=== PATIENT | female | born 1960 | race Caucasian/White ===

== ENCOUNTER → 2024-01-18 16:10 | Outpatient (REF) | payer OTHER, SELFPAY | LOC: PAVMRI 16:10 | PROVIDERS: ATTENDING PHYSICIAN Orthopaedic Surgery; FAMILY PHYSICIAN Family Medicine | DX: M25.562 Pain in left knee (principal) | CPT/HCPCS: 73721 ==

== ENCOUNTER → 2024-01-23 14:23 | Outpatient (REF) | payer OTHER, SELFPAY ==
[2024-01-23 14:51] LABS: % Basophils 0.9 % (0-2); % Eosinophils 4.9 % (0-6); % Immature Granulocytes 0.2 % (0-0.5); % Lymphocytes 32.5 % (20.5-51.1); % Monocytes 9.3 % (1.7-9.3); % Neutrophils 52.2 % (42.2-75.2); Absolute Basophils 0.1 10^3/uL (0-0.2); Absolute Eosinophils 0.3 10^3/uL (0-0.7); Absolute Lymphocytes 1.8 10^3/uL (1.2-3.4); Absolute Monocytes 0.5 10^3/uL (0.1-0.6); Absolute Neutrophils 2.9 10^3/uL (1.4-6.5); Hematocrit 35.5 % (37.0-47.0); Hemoglobin 12.7 g/dL (12.0-16.0); Mean Corp Hgb Conc. 35.8 g/dL (33.0-37.0); Mean Corpuscular Volume 95.2 fL (81.0-99.0); Mean Platelet Volume 10.3 fL (7.4-10.4); Nucleated Red Blood Cells % 0 %; Platelet Count 188 10^3/uL (130-400); Red Blood Cell Count 3.73 10^6/uL (4.20-5.40); Red Cell Dist. Width 11.7 % (11.5-14.5); White Blood Cell Count 5.5 10^3/uL (4.8-10.8)
== END ==
LOC: RCS 14:23
PROVIDERS: ATTENDING PHYSICIAN Orthopaedic Surgery; FAMILY PHYSICIAN Family Medicine
DX: Z01.818 Encounter for other preprocedural examination (principal)
CPT/HCPCS: 36415; 85025; 93005

== ENCOUNTER 2024-01-26 06:10 | Day surgery (SDC) | payer OTHER, SELFPAY ==
[2024-01-26] VITALS (8 sets, daily range): BP systolic 97–138; BP diastolic 65–87; BMI 22.2
[2024-01-26] MEDS: NORMOSOL-R/PLASMALYTE-A 1000 IV (07:18)
[2024-01-26] MEDS: CELEBREX 200 MG PO (07:19)
[2024-01-26] MEDS: TYLENOL 1000 MG PO (07:19)
[2024-01-26] MEDS: TRANSDERM-SCOP 1 PATCH TRANSDERM (07:28)
== END 2024-01-26 11:30 | disposition home or self-care (01) ==
LOC: SDS 06:10
PROVIDERS: ATTENDING PHYSICIAN Orthopaedic Surgery
DX: S83.232A Complex tear of medial meniscus, current injury, left knee, initial encounter (principal); X50.0XXA Overexertion from strenuous movement or load, initial encounter
CPT/HCPCS: 29881

== ENCOUNTER → 2024-09-18 11:50 | Outpatient (REF) | payer OTHER, SELFPAY | LOC: RAD 11:50 | PROVIDERS: ATTENDING PHYSICIAN Student in an Organized Health Care Education/Training Program | DX: K59.09 Other constipation (principal) | CPT/HCPCS: 74019 ==

== ENCOUNTER → 2024-10-02 13:36 | Outpatient (REF) | payer OTHER, SELFPAY | LOC: RCS 13:36 | PROVIDERS: ATTENDING PHYSICIAN Internal Medicine Cardiovascular Disease; FAMILY PHYSICIAN Family Medicine | DX: I49.3 Ventricular premature depolarization (principal) | CPT/HCPCS: 93306 ==

== ENCOUNTER 2024-11-08 06:22 | Day surgery (SDC) | payer OTHER, SELFPAY | END 2024-11-08 11:27 | disposition home or self-care (01) | LOC: GI 06:22 | PROVIDERS: ATTENDING PHYSICIAN Student in an Organized Health Care Education/Training Program | DX: Z12.11 Encounter for screening for malignant neoplasm of colon (principal); K31.7 Polyp of stomach and duodenum; K31.89 Other diseases of stomach and duodenum; K22.89 Other specified disease of esophagus; D12.3 Benign neoplasm of transverse colon; K63.5 Polyp of colon; K29.50 Unspecified chronic gastritis without bleeding; K31.A11 Gastric intestinal metaplasia without dysplasia, involving the antrum; K29.60 Other gastritis without bleeding; K31.A0 Gastric intestinal metaplasia, unspecified; K29.40 Chronic atrophic gastritis without bleeding; B37.81 Candidal esophagitis | CPT/HCPCS: 45385; 43239; 88305; 88342 ==

== ENCOUNTER → 2025-02-13 09:26 | Outpatient (REF) | payer OTHER, SELFPAY | LOC: RCS 09:26 | PROVIDERS: ATTENDING PHYSICIAN Internal Medicine Cardiovascular Disease; FAMILY PHYSICIAN Family Medicine | DX: R00.2 Palpitations (principal); I49.3 Ventricular premature depolarization | CPT/HCPCS: 93225; 93226 ==